=== PATIENT | male | born 1950 | race Caucasian/White ===

== ENCOUNTER → 2019-04-25 11:02 | Outpatient (BNVA) | payer MEDICARE, SELFPAY | PROVIDERS: Family Provider Family Medicine; PCP Family Medicine; Referring Provider Internal Medicine Rheumatology; Visit Provider Internal Medicine Rheumatology | DX: M05.79 Rheumatoid arthritis with rheumatoid factor of multiple sites without organ or systems involvement (principal); Z79.899 Other long term (current) drug therapy | CPT/HCPCS: 36415; 85651; 86140 ==

== ENCOUNTER → 2019-05-17 15:24 | Outpatient (BNVA) | payer MEDICARE, SELFPAY | PROVIDERS: Family Provider Family Medicine; PCP Family Medicine; Visit Provider Internal Medicine Rheumatology | DX: M05.9 Rheumatoid arthritis with rheumatoid factor, unspecified (principal); Z79.899 Other long term (current) drug therapy; E11.9 Type 2 diabetes mellitus without complications; G89.29 Other chronic pain; M54.5 Low back pain; M06.9 Rheumatoid arthritis, unspecified; Z71.89 Other specified counseling | CPT/HCPCS: 36415; 80076; 82565; 85025; 86140; 99214 ==

== ENCOUNTER → 2019-05-17 17:00 | Outpatient (BNVA) | payer MEDICARE, SELFPAY | PROVIDERS: Family Provider Family Medicine; PCP Family Medicine; Visit Provider Internal Medicine Rheumatology | DX: M06.9 Rheumatoid arthritis, unspecified (principal); Z79.899 Other long term (current) drug therapy; M05.9 Rheumatoid arthritis with rheumatoid factor, unspecified; E11.9 Type 2 diabetes mellitus without complications; Z71.89 Other specified counseling | CPT/HCPCS: 85025 ==

== ENCOUNTER 2019-05-19 12:51 | Outpatient (CLI) | payer MEDICARE, SELFPAY ==
--- NOTE | 2019-05-19 13:00 | XR_ITS ---
WS: [id number] Lumbar spine, 3 views, 05/19/2019 Clinical Data: arthritis Comparison: None. Findings: No compression fractures or subluxation is seen. No disc space narrowing is seen. The transverse proc esses and SI joints are normal. There is osteoarthritic spurring of the lower thoracic and the lumbar vertebral bodies L1-L3. There i s a large amount of fecal material in the colon. 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
== END 2019-05-19 12:52 | disposition home or self-care (01) ==
LOC: RADWPI 12:54
PROVIDERS: Family Provider Family Medicine; PCP Family Medicine; Visit Provider Internal Medicine Rheumatology
DX: M47.896 Other spondylosis, lumbar region (principal); M05.9 Rheumatoid arthritis with rheumatoid factor, unspecified
CPT/HCPCS: 72100

== ENCOUNTER → 2019-10-26 10:34 | Outpatient (BNVA) | payer MEDICARE, SELFPAY | PROVIDERS: Family Provider Family Medicine; PCP Family Medicine; Visit Provider Internal Medicine Rheumatology | DX: M05.79 Rheumatoid arthritis with rheumatoid factor of multiple sites without organ or systems involvement (principal); Z79.899 Other long term (current) drug therapy; E11.9 Type 2 diabetes mellitus without complications; M47.816 Spondylosis without myelopathy or radiculopathy, lumbar region; Z79.84 Long term (current) use of oral hypoglycemic drugs | CPT/HCPCS: 36415; 80076; 82565; 85025; 85651; 86140; 99213 ==

== ENCOUNTER 2019-12-20 13:33 | Outpatient (CLI) | payer MEDICARE, SELFPAY ==
--- NOTE | 2019-12-20 13:45 | MR_ITS ---
WS: [id number] MRI RIGHT SHOULDER HISTORY: pain COMPARISON: 12/01/2019 radiographs. TECHNIQUE: Multiplanar sequences of the shoulder joint are submitted. Quality of this examination is significantly limited by motion artifact. Increased fluid signal in the AC joint with narrowing of the AC joint. Nondisplaced avulsion fracture through the anterior acromion. There is fluid extending through the fracture line. Small amount of e jessica in the distal clavicular head. No os acromion. Complete tear with retraction of the supraspinatus tendon. Tendon is retracted to the medial humeral head. Cannot evaluate the quality of the distal tendon stump due to motion. Humeral head is high ridi ng abutting the undersurface of the acromion. Marked increased signal and thickening of the distal vigil bscapularis tendon. Additional near full-thickness to full-thickness tear of the distal subscapularis tendon. Biceps tendon is dislocated with increased fluid in the tendon sheath. Infraspinatus tendon is difficult to visualize and evaluate but cannot confirm tear. Mild atrophy of the supraspinatus mus danny. Humeral head is high riding with mild posterior subluxation with relationship to the glenoid. Loss of the normal cortex of the humeral head. Loss of the normal cartilage over the humeral head. Subchondr al cystic changes in the posterior lateral humeral head. Fluid extending around the some scapularis r ecess and along the tendon sheath of the subscapularis. No definite labral tears but this study is li mited especially involving the superior and inferior labrum. MR/MR shoulder RT wo con* [id number] IMPRESSION: 1. Quality of examination is significantly limited by motion. 2. Complete supraspinatus tendon tear with retraction to the medial humeral he ad. 3. Suspect complete subscapularis tendon tear with associated biceps tendon di slocation. 4. Moderate AC joint sprain with nondisplaced acromial fracture. 5. Severe degenerative changes at the humeral head with loss of cartilage and osteophytes. 6. Superior posterior mild subluxation of the humeral head with association to the glenoid.
== END 2019-12-20 13:34 | disposition home or self-care (01) ==
LOC: RADSHAW 13:36
PROVIDERS: PCP Nurse Practitioner Family; Visit Provider Orthopaedic Surgery
DX: S46.811A Strain of other muscles, fascia and tendons at shoulder and upper arm level, right arm, initial encounter (principal); S43.51XA Sprain of right acromioclavicular joint, initial encounter; S42.121A Displaced fracture of acromial process, right shoulder, initial encounter for closed fracture; X58.XXXA Exposure to other specified factors, initial encounter; M25.711 Osteophyte, right shoulder
CPT/HCPCS: 73221

== ENCOUNTER → 2020-01-02 11:01 | Outpatient (BNVA) | payer MEDICARE, SELFPAY | PROVIDERS: PCP Nurse Practitioner Family; Referring Provider Orthopaedic Surgery; Visit Provider Orthopaedic Surgery | DX: Z20.828 Contact with and (suspected) exposure to other viral communicable diseases (principal) | CPT/HCPCS: 87635 ==

== ENCOUNTER 2020-01-08 07:19 | Day surgery (SDC) | payer MEDICARE, SELFPAY ==
[2020-01-05 09:27] VITALS: BMI 28.8
[2020-01-08] VITALS (7 sets, daily range): BP systolic 91–136; BP diastolic 63–84; PULSE 71–89; RESP 10–18; TEMP 36.1–36.5; O2SAT 93–98
[2020-01-08 07:52] LABS: Glucose Point of Care 276 mg/dL (70-110)
[2020-01-08] MEDS: sodium chloride 0.9% 1,000 ML 30 ML IV (07:58)
--- NOTE | 2020-01-08 08:00 | ANES.PREANE2 ---
Pre-Anesthetic Assessment Pre-Anesthetic Assessment: Height/Weight: Height 1.75 m Weight 88.451 kg Temp Pulse Resp BP Pulse Ox 97.2 F L 71 18 136/84 97 01/08/20 07:38 01/08/20 07:38 01/08/20 07:38 01/08/20 07:38 01/08/20 07:38 Preop Diagnosis: Right rotator cuff tear, dislocation biceps tendon Proposed Procedure: Operation Date: 01/08/20 09:25 Proposed Procedures p right Shoulder Arthroscopy and subacromial decompression 80112 32253 12360 40465 M75.101 S46.219A M70.21(Right) - MD bobbi Osman Rotator Cuff Repair(Right) - MD bobbi Osman subacromial Decompression(Not Applicable) - MD bobbi Osman Poss Bicep Tenodesis(Not Applicable) - MD bobbi Osman Right Elbow olecranon bursa Aspiration Upper Extremity(Right) - Filiberto Snyder MD Familial anesthetic complications: None Was Beta Radha taken within 24 hours: N/A Last intake: Intake Last Liquid Date 01/07/20 Last Liquid Time 22:00 Last Solid Date 01/07/20 Last Solid Time 22:00 Social: Social History: Tobacco Comment: chews Exam: Pre-Anes Outpt Exam: alert, oriented x 3, clear to auscultation bilaterally and regular rate & rhythm Airway: Cervical ROM: WNL MP: 2 Dentition: False Metabolic: Metabolic: DM and Hyperlipidemia Musc/skel: Musc/skel: RA Anesthetic Plan: ASA status: 2 Anesthesia: General and Regional (specify below) Risk of > 500 ml blood loss (7ml/kg in children): No Meds/Allergies Current Medications: Current Medications Generic Name Dose Route Start Last Admin Trade Name Freq PRN Reason Stop Dose Admin Sodium Chloride 1,000 mls @ 30 ml s/hr 01/08/20 07:30 01/08/20 07:58 Sodium Chloride 0.9% IV 01/09/20 07:29 30 mls/hr .Q24H BECKY Administration PFSH Anesthesia PFSH: Medical History (Updated 01/01/20 @ 09:28 by Filiberto Snyder MD) Degenerative joint disease (DJD) of lumbar spine High risk medication use Immunization counseling Rheumatoid arthritis with rheumatoid factor Seropositive rheumatoid arthritis of multiple sites Type 2 diabetes mellitus Surgical History History of appendectomy History of hernia surgery Family History Other Arthritis Diabetes Hyperlipidemia Hypertension Social History Smoking and tobacco status: former smoker Alcohol intake: never History of recent travel: No Data Anesthesia Other Labs: Laboratory Results - last 48 hr 01/08/20 07:50 POC Glucose 276 Cardiac Studies: No Data to Display
--- NOTE | 2020-01-08 08:16 | ANES.PROC ---
Anesthesia Procedures Procedure/Date: 01/08/20 Nerve Block ^: Nerve Block 1: Main Anesthesia: general anesthesia Time Out Performed: Yes Consent: requested by attending/covering physician, from patient, from other, risks and benefits reviewed and patient agrees to proceed Nerve block location: interscalene (R) Anesthesia monitors applied: pulse oximetry, EKG, BP cuff and oxygen Nerve block position: semi sitting Anesthetic Used: ropivicaine 0.5% and with decadron (4 mg) Amount of anesthesia used (mL): 20 Ultrasound used to: recognize landmarks, visualize and ID brachial plexus and visualize and ID interscalene groove Nerve Stimulator Used?: No Interscalene/Femoral BLK: 2 stimuplex 22 g needle used for position and inplane approach, visualize local anesthetic spread and no vascular puncture identified Injection: neg aspiration of heme Patient Tolerated Procedure: well Complications: none
[2020-01-08] MEDS: midazolam 1 mg/mL INJ 2 mL 2 MG IVP (08:27)
--- NOTE | 2020-01-08 09:17 | W.PM.OPSUD ---
Surgery/Procedure H&P Update DATE OF PROCEDURE: January 08, 2020 DATE H&P PERFORMED: 01/01/20 PREOP DIAGNOSIS: Right rotator cuff tear, dislocation biceps tendon PLANNED PROCEDURE: Operation Date: 01/08/20 09:25 Proposed Procedures p right Shoulder Arthroscopy and subacromial decompression 22426 34520 50501 30319 M75.101 S46.219A M70.21(Right) - MD bobbi Osman Rotator Cuff Repair(Right) - MD bobbi Osman subacromial Decompression(Not Applicable) - MD bobbi Osman Poss Bicep Tenodesis(Not Applicable) - MD bobbi Osman Right Elbow olecranon bursa Aspiration Upper Extremity(Right) - Filiberto Snyder MD
--- NOTE | 2020-01-08 12:51 | P.OP_ITS ---
Operative Report Date of procedure: January 08, 2020 Pre-op Diagnosis: Right rotator cuff tear, dislocation biceps tendon Post-op diagnosis: other (Right rotator cuff tear involving subscapularis, supraspinatus, and infraspinatus, partial tear right biceps) Post-op Findings: As above Procedure Done: Arthroscopic repair right rotator cuff, arthroscopic right biceps tenodesis, arthroscopic right subacromial decompression Implants: [employer] Q fix x4, [employer] Helicoil 4.0x2, [employer] Helicoil knotless 5.0 mm x 2 Pathology: none sent Anesthesia: General and Nerve Block (Interscalene block) Estimated blood loss (mL): 25 Findings: The patient had a large tear of his rotator cuff consisting of a complete tear of the supraspinatus and a delaminating tear of his short external rotators. His anterior rotator cuff cable was intact however he had tearing of his superior 30% of the subscapularis without significant retraction. He had high-grade tearing of his biceps tendon as it entered the bicipital groove. He had a prominent anterior acromial spur Condition: stable Disposition: PACU Procedure: None he was given an interscalene block in the holding and taken to the OR where he was given 2 g of Ancef. He was positioned in the lateral position with his right arm in 15 pounds of traction. A timeout was performed. The shoulder was initially entered through a posterior portal. The diagnostic part arthroscopy was performed and above findings noted. The scope was then moved to the subacromial space. An additional anterior and lateral portal were placed. Initial attention was paid to the leading edge of the acromion. To make room for the repair a 5 5 acromionizer was introduced and approximately 5 mm of anterior and inferior acromion were removed. Hemostasis was provided with the [employer] Werewolf probe Attention was placed to the biceps. Biceps tendon was displaced from the bicipital groove through the anterior portal and working through the lateral portal the groove was debrided down to healthy trabecular bone. Through a stab wound over the biceps a Q fix anchor was placed at the distal extent of the bicipital groove. A loop of a 1 suture was then retrieved through the anterior portal and the free end of that looped retrieved through the loop creating a cinch stitch securing the biceps to the distal bicipital groove. A second Q fix anchor was placed in identical fashion approximately 1 cm proximal. The biceps tendon was then released from the superior labrum and excised down to the level of the arthrodesis. With the biceps tendon removed the leading edge of the subscapularis could be identified revealing the tear of the proximal third. Working intra-articularly the footprint was debrided. Visualized in the footprint a Q fix anchor was placed centrally in the footprint. The scope was then moved to the lateral portal and working through the anterior portal the superior subscapularis was identified. The [employer] Werewolf probe was used to remove bursal tissue anteriorly. The degenerative tissue in the interval between the subscapularis and the footprint was debrided. Working through the anterior portal each limb of the Q fix anchor were passed through the rotator cuff with a first pass suture passer. Through the anterior portal these are secured bringing the subscapularis down to the debrided bone. Attention was then focused on the supraspinatus and infraspinatus tear. Initially a Accupass shuttle was used to pass a Prolene shuttle suture across the articular aspect of the posterior tear. This was exchanged for an Ultratape suture in this Ultratape was passed with the first pass through the posterior bursal tear. This was secured turning the external rotators into a simple repair configuration. Through a lateral stab wound a [employer] Helicoil 4.0 mm anchor was placed in the posterior medial greater tuberosity. The [employer] FirstPass suture passer was used to shuttle the first limb of Ultratape through the posterior medial cuff approximately 6 mm from the tendon edge and the second limb of Ultratape approximately 5 mm anterior to that. A second [employer] Helicoil 4.0 mm anchor was placed in the anterior medial footprint and 2 Ultratape sutures passed in identical fashion. These were secured drawing the medial cuff to bone. Next one limb of suture from each anchor was brought out that lateral cannula. A [employer] Helicoil 5.0 knotless anchor was placed at the edge of the anterior lateral footprint and those 2 sutures secured. A second knotless anchor was placed in the posterior lateral footprint. The lateral aspect of the rotator cuff was seen to be drawn to the bone. The repair was probed and found to be stable. The shoulder was irrigated with saline. Portals were closed with 3-0 Prolene. Sterile dressings were applied. The patient was placed in abduction pillow, extubated, and taken to recovery room in stable condition.
--- NOTE | 2020-01-08 13:00 | SUR.PHASEI ---
1258 PATIENT TO PACU FROM OR. RR EVEN AND UNLABORED. DRESSING TO RIGHT SHOULDER, CDI WITH SLING IN PLACE. CAP REFILL INTACT.
--- NOTE | 2020-01-08 13:22 | SUR.PHASEI ---
1317 TO OPS. PATIENT DENIES PAIN. DRESSING IN PLACE TO RIGHT SHOULDER, CDI WITH SLING.
== END 2020-01-08 14:20 | disposition home or self-care (01) ==
PROVIDERS: PCP Nurse Practitioner Family; Visit Provider Orthopaedic Surgery
PROC: (CPT 29805; principal; 2020-01-08 09:25)
PROC: (CPT 29826; 2020-01-08 09:25)
PROC: (CPT 29826; 2020-01-08 09:25)
PROC: (CPT 23430; 2020-01-08 09:25)
PROC: (CPT 29826; 2020-01-08 09:25)
DX: M75.101 Unspecified rotator cuff tear or rupture of right shoulder, not specified as traumatic (principal); S46.219A Strain of muscle, fascia and tendon of other parts of biceps, unspecified arm, initial encounter; X58.XXXA Exposure to other specified factors, initial encounter; E11.9 Type 2 diabetes mellitus without complications; E78.5 Hyperlipidemia, unspecified; M06.9 Rheumatoid arthritis, unspecified; Z87.891 Personal history of nicotine dependence
CPT/HCPCS: 29826; 29827; 29828; 12345; 36416; 64415; 76942; 82962; 96374; C1713; J0690; J1100; J2250; J2405; J2704; J2795; J3010; J3490; J7030

== ENCOUNTER 2020-01-26 11:45 | Outpatient (RCR) | payer MEDICARE, SELFPAY | END 2020-02-19 23:59 | disposition home or self-care (01) | LOC: SPT 11:45 | PROVIDERS: PCP Nurse Practitioner Family; Referring Provider Orthopaedic Surgery; Visit Provider Orthopaedic Surgery | DX: Z47.89 Encounter for other orthopedic aftercare (principal) | CPT/HCPCS: 97110; 97161 ==

== ENCOUNTER 2020-02-20 06:00 | Outpatient (RCR) | payer MEDICARE, SELFPAY | END 2020-03-21 23:59 | disposition home or self-care (01) | LOC: SPT 06:00 | PROVIDERS: PCP Nurse Practitioner Family; Referring Provider Orthopaedic Surgery; Visit Provider Orthopaedic Surgery | DX: Z47.89 Encounter for other orthopedic aftercare (principal) | CPT/HCPCS: 97110 ==

== ENCOUNTER 2020-03-22 06:00 | Outpatient (RCR) | payer MEDICARE, SELFPAY | END 2020-04-21 23:59 | disposition home or self-care (01) | LOC: SPT 06:00 | PROVIDERS: PCP Nurse Practitioner Family; Referring Provider Orthopaedic Surgery; Visit Provider Orthopaedic Surgery | DX: Z47.89 Encounter for other orthopedic aftercare (principal) | CPT/HCPCS: 97110 ==

== ENCOUNTER → 2020-04-01 10:55 | Outpatient (BNVA) | payer MEDICARE, SELFPAY | PROVIDERS: PCP Nurse Practitioner Family; Visit Provider Internal Medicine Rheumatology | DX: Z79.899 Other long term (current) drug therapy (principal); M05.79 Rheumatoid arthritis with rheumatoid factor of multiple sites without organ or systems involvement | CPT/HCPCS: 36415; 80076; 82565; 85025; 85651; 86140 ==

== ENCOUNTER 2020-04-22 06:00 | Outpatient (RCR) | payer MEDICARE, SELFPAY | END 2020-05-19 23:59 | disposition home or self-care (01) | LOC: SPT 06:00 | PROVIDERS: PCP Nurse Practitioner Family; Referring Provider Orthopaedic Surgery; Visit Provider Orthopaedic Surgery | DX: Z47.89 Encounter for other orthopedic aftercare (principal) | CPT/HCPCS: 97110 ==

== ENCOUNTER → 2020-04-29 09:41 | Outpatient (BNVA) | payer MEDICARE, SELFPAY | PROVIDERS: PCP Nurse Practitioner Family; Visit Provider Internal Medicine Rheumatology | DX: M05.79 Rheumatoid arthritis with rheumatoid factor of multiple sites without organ or systems involvement (principal); Z79.899 Other long term (current) drug therapy; E11.9 Type 2 diabetes mellitus without complications; Z79.84 Long term (current) use of oral hypoglycemic drugs; M47.816 Spondylosis without myelopathy or radiculopathy, lumbar region; Z87.891 Personal history of nicotine dependence | CPT/HCPCS: 99214 ==

== ENCOUNTER 2020-05-03 21:36 | Observation (INO) | payer MEDICARE, SELFPAY ==
[2020-05-03 21:46] VITALS: BP 144/87; PULSE 91; RESP 18; TEMP 36.4; O2SAT 97; BMI 29.5
--- NOTE | 2020-05-03 21:56 | ED_ITS ---
HPI - General Adult General: Chief complaint: General Medical Stated complaint: FEELS LIKE SOMETHING STUCK IN THROAT Time Seen by Provider: 05/03/20 21:52 Source: patient Mode of arrival: ambulatory Limitations: no limitations History of Present Illness: HPI narrative: 69-year-old male states that he was eating a night and got hiccups started throwing up. He states that he then felt like he had a piece of meat stuck in his esophagus. He states that he was eating chicken fried steak. Patient states that he since feels much improved. He denies any worsening or improving factors. Associated symptoms: Reports nausea and vomiting; Deny chest pain, dyspnea, headache(s) or rash Review of Systems Const: Denies: fever(s), chills, body aches or change in appetite Eyes: Denies: blurry vision or eye discomfort ENMT: Denies: throat pain or dental pain Card: Denies: chest pain Resp: Denies: dyspnea GI: Reports: abdominal pain, nausea and vomiting; Denies: diarrhea : Denies: dysuria Musc: Denies: neck pain or back pain Skin/Breast: Denies: rash Neuro: Denies: headache(s) Psych: Denies: depression Juan Francisco/Lymph: Denies: easy bruising All/Imm: Denies: urticaria PFSH ED PFSH: Medical History (Updated 05/03/20 @ 23:08 by Lissa Sinha MD) Degenerative joint disease (DJD) of lumbar spine Diverticular disease High risk medication use Immunization counseling Rheumatoid arthritis with rheumatoid factor Seropositive rheumatoid arthritis of multiple sites Type 2 diabetes mellitus Surgical History (Updated 04/29/20 @ 10:50 by Beto Ramírez MD) History of appendectomy History of hernia surgery History of shoulder surgery Fell and busted right shoulder then surgery 12/2019 Family History Other Arthritis Diabetes Hyperlipidemia Hypertension Social History Smoking and tobacco status: former smoker Alcohol intake: never History of recent travel: No Physical Exam Const: COMMON NORMALS: no acute distress, patient oriented x3 and healthy appearing HENMT: COMMON NORMALS: normocephalic and atraumatic HEAD & SCALP: normocephalic and atraumatic Eye: COMMON NORMALS: Equal, round and reactive pupils present and EOMs intact bilaterally PUPIL: Yes Equal, round and reactive pupils present Neck/C-Spine: COMMON NORMALS: full ROM and supple Chest: COMMONS NORMALS: normal inspection of the chest and normal palpation of entire chest wall Resp: COMMON NORMALS: normal respiratory effort, No retractions, No use of accessory muscles and clear to auscultation bilaterally AUSCULTATION: clear to auscultation bilaterally Cardio: COMMON NORMALS: regular rate, regular rhythm and No murmurs present (Cardio) RATE: regular rate RHYTHM: regular rhythm GI: COMMON NORMALS: Normal to inspection, nondistended, normoactive bowel sounds present, Soft to palpation, non-tender and no masses PALPATION: Yes Soft to palpation Extremity: COMMON NORMALS: normal to inspection and full ROM Neuro: COMMON NORMALS: patient oriented x3, moves all extremities and no focal motor deficits Psych: COMMON NORMALS: mental status grossly normal, Normal thought process present and cooperative THOUGHT PROCESS: Normal thought process present Skin: COMMON NORMALS: no rashes or lesions noted and no wounds GENERAL SKIN EXAM: no rashes or lesions noted Course Vital Signs: Vital signs: Vital Signs Temperature 97.5 F L 05/03/20 21:46 Pulse Rate 91 05/03/20 21:46 Respiratory Rate 18 05/03/20 21:46 Blood Pressure 144/87 05/03/20 21:46 Pulse Oximetry 97 05/03/20 21:46 MDM - General Adult MDM Narrative: Medical decision making narrative: Da presents with likely food impaction of the esophagus. He is not been able to drink any fluids here. He is able to handle his own secretions. I spoke to Dr. White and will admit and if he is not improved he will have an EGD in the morning. Discharge Plan Discharge Patient Disposition: Admitted As Inpatient Admit Provider: Familia White Clinical Impression: Food impaction of esophagus Qualifiers: Encounter type: initial encounter Qualified Code(s): T18.128A - Food in esophagus causing other injury, initial encounter Condition: Stable Coding Level of Care Code ED [employer] for [facility] Fwd Exam Comprehensive
[2020-05-03] MEDS: lidocaine 2% viscous 15 ML, aluminum-mag hydrox-simethicon 30 ML, sucralfate oral liq 1 GM PO (22:04)
--- NOTE | 2020-05-03 22:10 | PC.NURSE ---
Pt given GI cocktail, within 1-2 minutes patient had an episode of emesis and much of the GI cocktail appeared to have been expelled.
--- NOTE | 2020-05-03 23:05 | PC.NURSE ---
Dr. Sinha tells this nurse to hold off on giving the glucagen injection verified that he does not want the glucagen given at this time and Dr. Sinha confirmed.
--- NOTE | 2020-05-03 23:25 | XRR_ITS ---
PROCEDURE INFORMATION: Exam: XR Chest, 1 View Exam date and time: 05/03/2020 11:31 PM Age: 69 years old Clinical indication: Other: Foreign body; Patient HX: Possible esophageal obstruction following dinner this evening. Unable to keep anything down. Vomiting. ; Additional info: Fb TECHNIQUE: Imaging protocol: XR of the chest Views: 1 view. COMPARISON: CT chest w con* [id number] 07/31/2018 10:35 PM FINDINGS: Lungs: Lungs are clear. Pleural spaces: There is no pleural effusion or pneumothorax. Heart/Mediastinum: Cardiomediastinal contours are unremarkable. Bones/joints: Bones are unremarkable. Gastrointestinal tract: Trace gas is seen in the upper esophagus. No radiopaque foreign body is seen. XR/XR chest 1V portable [id number] IMPRESSION: No acute findings.
[2020-05-04 00:21] VITALS: BP 136/76; PULSE 85; RESP 16; O2SAT 96
[2020-05-04 00:43] LABS: Basophils # 0.1 10^3/uL (0.0-0.1); Basophils % 0.6 %; Eosinophils # 0.1 10^3/uL (0.0-0.8); Eosinophils % 0.8 %; Hematocrit 44.1 % (42.0-52.0); Hemoglobin 14.8 g/dL (11.7-16.6); Lymphocytes # 1.1 10^3/uL (0.8-4.8); Lymphocytes % 13.9 %; Mean Corpuscular HGB Conc 33.6 g/dL (30.0-36.0); Mean Corpuscular Hemoglobin 29.3 pg (28.0-34.0); Mean Corpuscular Volume 87.3 fL (80-94); Monocytes # 0.4 10^3/uL (0.2-0.9); Monocytes % 5.5 %; Neutrophils # 6.25 10^3/uL (1.8-7.7); Neutrophils % 78.8 %; Nucleated Red Blood Cells % 0 %; Platelet Count 175 10^3/cmm (130-400); Red Blood Count 5.05 10^6/uL (4.1-5.3); Red Cell Distribution Width 13.3 % (12.1-15.1); White Blood Count 7.9 10^3/uL (4.0-10.0)
[2020-05-04 01:00] VITALS: BP 135/80; PULSE 85; RESP 16; O2SAT 97
[2020-05-04 01:13] VITALS: BP 147/88; PULSE 79; RESP 18; TEMP 36.5; O2SAT 96
[2020-05-04 01:16] LABS: Alanine Aminotransferase 29 U/L (0-41); Albumin Level 4.7 g/dL (3.5-5.2); Alkaline Phosphatase 63 IU/L (40-130); Anion Gap 15.6 (5-19); Aspartate Amino Transferase 20 U/L (0-40); Blood Urea Nitrogen 17 mg/dL (8-23); Calcium 9.1 mg/dL (8.5-10.5); Carbon Dioxide 26 mmol/L (22-29); Chloride 104 mmol/L (98-107); Globulin 2.7 g/dL (1.3-4.6); Glucose 141 mg/dL (65-115); Osmolality Calculated 296 mOsm/kg (285-295); Potassium 4.6 mmol/L (3.5-5.1); Sodium 141 mmol/L (136-145); Total Bilirubin 0.3 mg/dL (0.15-1.2); Total Protein 7.4 g/dL (6.6-8.7)
[2020-05-04] MEDS: sodium chloride 0.9% 1,000 ML 100 ML IV (01:31)
[2020-05-04 04:20] VITALS: BP 106/67; PULSE 79; RESP 18; TEMP 36.6; O2SAT 97
[2020-05-04 07:56] VITALS: BP 117/74; PULSE 69; RESP 18; TEMP 36.7; O2SAT 97
--- NOTE | 2020-05-04 11:35 | PM.SDS ---
Short Stay Summary Providers Date of Admit/Discharge: 05/04/20 Attending Provider: Familia White MD Primary Care Provider: TENISHA Wells Chief Complaint: FEELS LIKE SOMETHING STUCK IN THROAT HPI History of Present Illness Da Coleman is a 69 year old male who presented to the ER last night with sensation of piece of meat getting stuck in his esophagus. Patient had multiple hiccups and he threw up but he was able to swallow some saliva but could not eat. Patient states that he ate chicken fried steak. He denies any chest pain or abdominal pain. He states that he has had intermittent episodes of dysphagia followed by vomiting every week or so. Denies any history of peptic ulcer disease, GERD or use of PPI. He states that he had EGD and colonoscopy couple of years ago. Since admission he feels like his past the obstructing food bolus Review of Systems General: Reports: 10 or more systems reviewed and unremarkable except in HPI and below Home Meds/Allergies Home Medications and Allergies Home Medications Medication Instructions Recorded Confirmed Type aspirin 81 mg tablet,delayed 81 mg PO DAILY 05/16/19 05/04/20 History release atorvastatin 10 mg tablet 10 mg PO DAILY 05/16/19 05/04/20 History metformin 500 mg tablet 500 mg PO BID 10/26/19 05/04/20 History glimepiride See Rx Instructions .ROUTE .COMPLEX 05/04/20 05/04/20 History Allergies Allergy/AdvReac Type Severity Reaction Status Date / Time No Known Allergies Allergy Verified 05/03/20 21:51 PFSH Acute PFSH: Medical History Degenerative joint disease (DJD) of lumbar spine Diverticular disease Food impaction of esophagus Seropositive rheumatoid arthritis of multiple sites Type 2 diabetes mellitus Surgical History H/O esophagogastroduodenoscopy History of appendectomy History of hernia surgery History of shoulder surgery Fell and busted right shoulder then surgery 12/2019 Status post colonoscopy Family History Other Arthritis Diabetes Hyperlipidemia Hypertension Social History Smoking and tobacco status: former smoker Alcohol intake: never History of recent travel: No Vitals/I&O/Wt Last Vital Signs Temp 98.0 F 05/04/20 07:56 Pulse 69 05/04/20 07:56 Resp 18 05/04/20 07:56 BP 117/74 05/04/20 07:56 Pulse Ox 97 05/04/20 07:56 05/03/20 05/04/20 05/04/20 22:59 06:59 14:59 Output Total 400 / 400 Balance -400 / -400 Weight last 48 hrs Weight 200 lb Physical Exam Narrative: EXAM NARRATIVE: HEENT: Normocephalic Eye: Sclera /conjunctiva normal Abdomen: Soft to palpation Neurological: Oriented to place person and time Skin: Intact, no lesions appreciated on gross exam Hospital Course Admission Diagnoses Esophageal obstruction due to food impaction Hospital Course The patient was admitted to the floor for a planned EGD but subsequently had spontaneous resolution of his esophageal obstruction. He was able to drink water and tolerating regular diet Discharge Summary The patient was able to tolerate regular diet and was discharged home on Protonix 40 mg daily. Follow-up in 4 weeks, if there is no significant improvement in his dysphagia plan for EGD with possible dilation under MAC SSS Data Data Completed and Pending: Completed Studies During Hospitalization Category Date Time Status XR chest 1V ela ble [id number] Routine Exams 05/03/20 23:25 Completed Diagnoses at Discharge Discharge Diagnosis (1) Food impaction of esophagus: Status: Resolved Qualifiers: Encounter type: initial encounter Qualified Code(s): T18.128A - Food in esophagus causing other injury, initial encounter Discharge Plan Discharge Patient Disposition: Home Condition: Stable Prescriptions: New Protonix 40 mg tablet,delayed release (DR/EC) 40 mg PO DAILY 42 Days RF: 3 Continued atorvastatin 10 mg tablet 10 mg PO DAILY RF: 0 aspirin 81 mg tablet,delayed release (DR/EC) 81 mg PO DAILY RF: 0 metformin 500 mg tablet 500 mg PO BID RF: 0 hydroxychloroquine [Plaquenil] 200 mg tablet 200 mg PO DAILY Qty: 90 RF: 1 prednisone 10 mg tablet 10 mg PO DAILY Qty: 30 RF: 0 leflunomide 20 mg tablet 20 mg PO DAILY Qty: 90 RF: 0 diclofenac sodium 1 % gel 4 g topical QID Qty: 100 RF: 1 glimepiride 1 mg tablet See Rx Instructions .ROUTE .COMPLEX RF: 0 Discharge Orders: Discharge Order (Routine); Ordered 05/04/20 Ordered By: Familia White Referrals: Familia White MD [Physician] - 05/31/20 Cheli Vasquez FNP [Primary Care Provider] - (Please call [facility] on Wednesday and schedule an appointment to see Cheli Vasquez. ) Discharge Diet: Advance as tolerated Discharge Activity: Resume usual activity Patient Instructions: Pantoprazole (By mouth), Gastroesophageal Reflux Disease (GEN), Food Impaction (GEN) Attestations Medical Necessity Statement*: Esophageal obstruction due to food impaction, resolved Time Spent in Patient Care*: less than 30 min Quality Metrics Clinical Quality Measures: During this hospital stay, did patient experience: None Coding Level of Care Code Acute [employer] for [facility] Fwd Diagnoses Food impaction of esophagus T18.128A Encounter type: initial encounter
== END 2020-05-04 15:21 | disposition home or self-care (01) ==
LOC: ER 23:08 → MEDSURG 23:37
PROVIDERS: Admitting Provider Surgery; Emergency Provider Emergency Medicine; PCP Nurse Practitioner Family; Visit Provider Surgery
DX: T18.128A Food in esophagus causing other injury, initial encounter (principal); E11.9 Type 2 diabetes mellitus without complications; Z87.891 Personal history of nicotine dependence
CPT/HCPCS: 36415; 71045; 80053; 85025; 96360; 96361; 96372; 99285; G0378; J7030

== ENCOUNTER → 2020-05-28 09:11 | Outpatient (BNVA) | payer MEDICARE, SELFPAY | PROVIDERS: PCP Nurse Practitioner Family; Visit Provider Internal Medicine Rheumatology | DX: M05.79 Rheumatoid arthritis with rheumatoid factor of multiple sites without organ or systems involvement (principal); Z79.899 Other long term (current) drug therapy | CPT/HCPCS: 36415; 80076; 82565; 85025; 86140 ==

== ENCOUNTER → 2020-08-26 09:48 | Outpatient (BNVA) | payer MEDICARE, SELFPAY | PROVIDERS: PCP Nurse Practitioner Family; Visit Provider Internal Medicine Rheumatology | DX: M19.90 Unspecified osteoarthritis, unspecified site (principal); Z79.899 Other long term (current) drug therapy; M05.79 Rheumatoid arthritis with rheumatoid factor of multiple sites without organ or systems involvement | CPT/HCPCS: 36415; 80076; 82565; 85025; 86140 ==

== ENCOUNTER → 2020-09-02 12:41 | Outpatient (BNVA) | payer MEDICARE, SELFPAY | PROVIDERS: PCP Nurse Practitioner Family; Visit Provider Internal Medicine Rheumatology | DX: M05.79 Rheumatoid arthritis with rheumatoid factor of multiple sites without organ or systems involvement (principal); Z79.899 Other long term (current) drug therapy; M47.896 Other spondylosis, lumbar region; Z87.891 Personal history of nicotine dependence | CPT/HCPCS: 99214 ==

== ENCOUNTER → 2020-12-25 08:32 | Outpatient (BNVA) | payer MEDICARE, SELFPAY | PROVIDERS: PCP Nurse Practitioner Family; Visit Provider Internal Medicine Rheumatology | DX: M05.79 Rheumatoid arthritis with rheumatoid factor of multiple sites without organ or systems involvement (principal); Z79.899 Other long term (current) drug therapy | CPT/HCPCS: 36415; 80076; 82565; 85025; 86140 ==

== ENCOUNTER → 2021-01-01 12:19 | Outpatient (BNVA) | payer MEDICARE, SELFPAY | PROVIDERS: PCP Nurse Practitioner Family; Visit Provider Internal Medicine Rheumatology | DX: M05.79 Rheumatoid arthritis with rheumatoid factor of multiple sites without organ or systems involvement (principal); Z79.899 Other long term (current) drug therapy; M47.816 Spondylosis without myelopathy or radiculopathy, lumbar region; D69.6 Thrombocytopenia, unspecified; Z71.89 Other specified counseling; Z87.891 Personal history of nicotine dependence | CPT/HCPCS: 36415; 85025; 99214 ==

== ENCOUNTER → 2021-05-05 13:37 | Outpatient (BNVA) | payer MEDICARE, SELFPAY | PROVIDERS: PCP Nurse Practitioner Family; Visit Provider Internal Medicine Rheumatology | DX: M05.79 Rheumatoid arthritis with rheumatoid factor of multiple sites without organ or systems involvement (principal); M47.816 Spondylosis without myelopathy or radiculopathy, lumbar region; Z79.899 Other long term (current) drug therapy; Z71.89 Other specified counseling | CPT/HCPCS: 80076; 82565; 85025; 86140; 99214 ==

== ENCOUNTER 2021-05-05 14:45 | Outpatient (CLI) | payer MEDICARE, SELFPAY ==
[2021-05-05 15:19] LABS: Basophils # 0.1 10^3/uL (0.0-0.1); Basophils % 1.1 %; Eosinophils # 0.1 10^3/uL (0.0-0.8); Eosinophils % 1.5 %; Hematocrit 46.6 % (42.0-52.0); Hemoglobin 15.5 g/dL (11.7-16.6); Lymphocytes # 1.1 10^3/uL (0.8-4.8); Lymphocytes % 20.4 %; Mean Corpuscular HGB Conc 33.3 g/dL (30.0-36.0); Mean Corpuscular Hemoglobin 29.2 pg (28.0-34.0); Mean Corpuscular Volume 87.9 fl (80-94); Mean Platelet Volume 12.7 fL (7.4-10.4); Monocytes # 0.5 10^3/uL (0.2-0.9); Monocytes % 8.3 %; Neutrophils % 68.1 %; Nucleated Red Blood Cells % 0 %; Platelet Count 143 10^3/cmm (130-400); Red Cell Distribution Width 12.6 % (12.1-15.1); White Blood Count 5.4 10^3/uL (4.0-10.0)
[2021-05-05 16:06] LABS: Alanine Aminotransferase 40 U/L (0-41); Albumin Level 4.9 g/dL (3.5-5.2); Alkaline Phosphatase 62 IU/L (40-130); Aspartate Amino Transferase 22 U/L (0-40); Globulin 2.7 g/dL (1.3-4.6); Total Bilirubin 0.4 mg/dL (0.15-1.2); Total Protein 7.6 g/dL (6.6-8.7)
== END 2021-05-05 14:46 | disposition home or self-care (01) ==
LOC: LAB 14:49
PROVIDERS: PCP Nurse Practitioner Family; Visit Provider Internal Medicine Rheumatology
DX: M05.79 Rheumatoid arthritis with rheumatoid factor of multiple sites without organ or systems involvement (principal); Z79.899 Other long term (current) drug therapy
CPT/HCPCS: 80076; 82565; 85025; 86140

== ENCOUNTER → 2021-10-29 10:28 | Outpatient (BNVA) | payer MEDICARE, SELFPAY | PROVIDERS: PCP Nurse Practitioner Family; Visit Provider Internal Medicine Rheumatology | DX: M05.79 Rheumatoid arthritis with rheumatoid factor of multiple sites without organ or systems involvement (principal); M47.816 Spondylosis without myelopathy or radiculopathy, lumbar region; Z79.899 Other long term (current) drug therapy; Z71.89 Other specified counseling | CPT/HCPCS: 99214 ==

== ENCOUNTER → 2022-01-09 08:25 | Outpatient (BNVA) | payer MEDICARE, SELFPAY | PROVIDERS: PCP Nurse Practitioner Family; Visit Provider Clinical Nurse Specialist Adult Health | DX: E78.5 Hyperlipidemia, unspecified (principal); M05.79 Rheumatoid arthritis with rheumatoid factor of multiple sites without organ or systems involvement; Z79.899 Other long term (current) drug therapy; E11.9 Type 2 diabetes mellitus without complications; Z23 Encounter for immunization; R03.0 Elevated blood-pressure reading, without diagnosis of hypertension; M94.0 Chondrocostal junction syndrome [Tietze] | CPT/HCPCS: 80053; 80061; 85025; 86140 ==

== ENCOUNTER 2022-04-28 13:25 | Outpatient (CLI) | payer MEDICARE, SELFPAY | END 2022-04-28 13:26 | disposition home or self-care (01) | LOC: RT 13:27 | PROVIDERS: PCP Electrodiagnostic Medicine; Visit Provider Electrodiagnostic Medicine | DX: J44.9 Chronic obstructive pulmonary disease, unspecified (principal); F17.210 Nicotine dependence, cigarettes, uncomplicated; M05.79 Rheumatoid arthritis with rheumatoid factor of multiple sites without organ or systems involvement; Z79.899 Other long term (current) drug therapy; Z71.89 Other specified counseling; M47.816 Spondylosis without myelopathy or radiculopathy, lumbar region | CPT/HCPCS: 94010; 94726; 94729; 99214 ==

== ENCOUNTER 2022-07-24 11:04 | Outpatient (CLI) | payer MEDICARE, SELFPAY ==
[2022-07-24 11:39] LABS: Basophils % 1.5 %; Eosinophils # 0.1 10^3/uL (0.0-0.8); Eosinophils % 2.9 %; Hematocrit 43.1 % (42.0-52.0); Hemoglobin 14.1 g/dL (11.7-16.6); Lymphocytes # 0.9 10^3/uL (0.8-4.8); Mean Corpuscular HGB Conc 32.7 g/dL (30.0-36.0); Mean Corpuscular Volume 85.7 fl (80-94); Mean Platelet Volume 11.8 fL (7.4-10.4); Monocytes # 0.3 10^3/uL (0.2-0.9); Monocytes % 12.5 %; Neutrophils # 1.36 10^3/uL (1.8-7.7); Neutrophils % 49.7 %; Nucleated Red Blood Cells % 0 %; Platelet Count 142 10^3/cmm (130-400); Red Blood Count 5.03 10^6/uL (4.1-5.3); Red Cell Distribution Width 13.4 % (12.1-15.1); White Blood Count 2.7 10^3/uL (4.0-10.0)
[2022-07-24 11:56] LABS: Alanine Aminotransferase 32 U/L (0-41); Albumin Level 4.3 g/dL (3.5-5.2); Alkaline Phosphatase 51 U/L (40-130); Aspartate Amino Transferase 27 U/L (0-40); Globulin 2.5 g/dL (1.3-4.6); Total Bilirubin 0.5 mg/dL (0.15-1.2); Total Protein 6.8 g/dL (6.6-8.7)
== END 2022-07-24 11:05 | disposition home or self-care (01) ==
PROVIDERS: Internal Medicine Rheumatology; PCP Electrodiagnostic Medicine; Visit Provider Internal Medicine
DX: M05.79 Rheumatoid arthritis with rheumatoid factor of multiple sites without organ or systems involvement (principal); Z79.899 Other long term (current) drug therapy
CPT/HCPCS: 36415; 80076; 82565; 85025; 86140

== ENCOUNTER 2022-09-15 07:12 | Outpatient (CLI) | payer MEDICARE, SELFPAY ==
[2022-09-15 07:29] LABS: Basophils # 0.1 10^3/uL (0.0-0.1); Basophils % 1.2 %; Eosinophils # 0.1 10^3/uL (0.0-0.8); Eosinophils % 1.7 %; Hematocrit 43.3 % (42.0-52.0); Hemoglobin 14.3 g/dL (11.7-16.6); Lymphocytes # 1.5 10^3/uL (0.8-4.8); Lymphocytes % 36.5 %; Mean Corpuscular Hemoglobin 28.6 pg (28.0-34.0); Mean Corpuscular Volume 86.6 fl (80-94); Mean Platelet Volume 12.5 fL (7.4-10.4); Monocytes # 0.4 10^3/uL (0.2-0.9); Monocytes % 10.2 %; Neutrophils # 2.12 10^3/uL (1.8-7.7); Neutrophils % 50.2 %; Nucleated Red Blood Cells % 0 %; Platelet Count 132 10^3/cmm (130-400); Red Cell Distribution Width 13.7 % (12.1-15.1); White Blood Count 4.2 10^3/uL (4.0-10.0)
== END 2022-09-15 07:13 | disposition home or self-care (01) ==
PROVIDERS: PCP Electrodiagnostic Medicine; Visit Provider Internal Medicine Rheumatology
DX: M05.9 Rheumatoid arthritis with rheumatoid factor, unspecified (principal); Z79.899 Other long term (current) drug therapy
CPT/HCPCS: 36415; 85025

== ENCOUNTER → 2022-10-27 10:16 | Outpatient (BNVA) | payer MEDICARE, SELFPAY | PROVIDERS: PCP Electrodiagnostic Medicine; Visit Provider Internal Medicine Rheumatology | DX: Z79.899 Other long term (current) drug therapy (principal); M05.79 Rheumatoid arthritis with rheumatoid factor of multiple sites without organ or systems involvement; Z71.89 Other specified counseling; M47.816 Spondylosis without myelopathy or radiculopathy, lumbar region | CPT/HCPCS: 36415; 80076; 82565; 85025; 86140; 99214 ==

== ENCOUNTER 2022-11-10 09:08 | Outpatient (CLI) | payer MEDICARE, SELFPAY ==
[2022-11-10 10:05] LABS: Blood Urea Nitrogen 18 mg/dL (8-23)
== END 2022-11-10 09:09 | disposition home or self-care (01) ==
PROVIDERS: PCP Electrodiagnostic Medicine; Visit Provider Internal Medicine Rheumatology
DX: M05.79 Rheumatoid arthritis with rheumatoid factor of multiple sites without organ or systems involvement (principal); Z79.899 Other long term (current) drug therapy
CPT/HCPCS: 82565; 84520

== ENCOUNTER → 2023-02-02 10:53 | Outpatient (BNVA) | payer MEDICARE, SELFPAY | PROVIDERS: PCP Electrodiagnostic Medicine; Visit Provider Internal Medicine Rheumatology | DX: Z79.899 Other long term (current) drug therapy (principal); M05.79 Rheumatoid arthritis with rheumatoid factor of multiple sites without organ or systems involvement; Z71.89 Other specified counseling; M47.816 Spondylosis without myelopathy or radiculopathy, lumbar region | CPT/HCPCS: 36415; 80076; 82565; 85025; 86140; 99214 ==

== ENCOUNTER → 2023-05-25 10:21 | Outpatient (BNVA) | payer MEDICARE, SELFPAY | PROVIDERS: PCP Electrodiagnostic Medicine; Visit Provider Internal Medicine Rheumatology | DX: Z79.899 Other long term (current) drug therapy (principal); M05.79 Rheumatoid arthritis with rheumatoid factor of multiple sites without organ or systems involvement; Z71.89 Other specified counseling; M47.816 Spondylosis without myelopathy or radiculopathy, lumbar region | CPT/HCPCS: 80076; 82565; 85025; 86140; 99214 ==

== ENCOUNTER → 2023-06-24 08:05 | Outpatient (BNVA) | payer MEDICARE, SELFPAY | PROVIDERS: PCP Electrodiagnostic Medicine; Visit Provider Nurse Practitioner Family | DX: L82.1 Other seborrheic keratosis (principal); L57.8 Other skin changes due to chronic exposure to nonionizing radiation; D22.5 Melanocytic nevi of trunk; D22.62 Melanocytic nevi of left upper limb, including shoulder; L81.4 Other melanin hyperpigmentation | CPT/HCPCS: 99213 ==

== ENCOUNTER → 2023-11-23 10:10 | Outpatient (BNVA) | payer MEDICARE, SELFPAY | PROVIDERS: PCP Electrodiagnostic Medicine; Visit Provider Internal Medicine Rheumatology | DX: M05.79 Rheumatoid arthritis with rheumatoid factor of multiple sites without organ or systems involvement (principal); Z79.899 Other long term (current) drug therapy; Z71.85 Encounter for immunization safety counseling; M47.816 Spondylosis without myelopathy or radiculopathy, lumbar region | CPT/HCPCS: 36415; 80076; 82565; 85025; 85651; 86140; 99214 ==

== ENCOUNTER → 2024-05-23 09:40 | Outpatient (BNVA) | payer MEDICARE, SELFPAY | PROVIDERS: PCP Electrodiagnostic Medicine; Visit Provider Internal Medicine Rheumatology | DX: M05.79 Rheumatoid arthritis with rheumatoid factor of multiple sites without organ or systems involvement (principal); Z79.899 Other long term (current) drug therapy; Z71.89 Other specified counseling; M47.816 Spondylosis without myelopathy or radiculopathy, lumbar region | CPT/HCPCS: 36415; 80076; 82306; 82565; 85025; 85651; 86140; 99214 ==

== ENCOUNTER → 2024-06-01 13:14 | Outpatient (BNVA) | payer MEDICARE, SELFPAY | PROVIDERS: PCP Electrodiagnostic Medicine; Visit Provider Nurse Practitioner Family | DX: L82.1 Other seborrheic keratosis (principal); L57.8 Other skin changes due to chronic exposure to nonionizing radiation; D22.5 Melanocytic nevi of trunk; L81.4 Other melanin hyperpigmentation; L73.8 Other specified follicular disorders; S60.032A Contusion of left middle finger without damage to nail, initial encounter; L57.0 Actinic keratosis; X58.XXXA Exposure to other specified factors, initial encounter | CPT/HCPCS: 17000; 99213 ==

== ENCOUNTER 2024-07-07 07:45 | Emergency (ER) | payer MEDICARE, SELFPAY ==
[2024-07-07 07:50] VITALS: BP 148/82; PULSE 84; RESP 17; TEMP 36.5; O2SAT 94; BMI 28.8
[2024-07-07 07:59] LABS: Glucose Point of Care 263 mg/dL (70-110)
--- NOTE | 2024-07-07 08:08 | XR_ITS ---
WS: [id number] Portable AP upright chest, 07/07/2024 Clinical Data: dyspnea/cough Comparison: 2 view chest, 04/06/2022 Findings: No nodules, masses or effusions are seen. The heart is normal. The pulmonary vascularity is not increased. No pneumonia or pneumothorax is seen. The aortic arch and descending thoracic aorta show tortuosity. XR/XR chest 1V portable [id number] Impression: Atherosclerosis.
--- NOTE | 2024-07-07 08:17 | CT_ITS ---
WS: [id number] CT HEAD NONCONTRAST HISTORY: trauma TECHNIQUE: Contiguous axial imaging performed through the brain. Bone and soft tissue windows. Sagittal and coronal reformats reviewed. All CT scans at [facility] use at least one of these dose optimization techniques: automated exposure control; mA and/or kV adjustment per patient size (includes targeted exams where dose is matched to clinical indication); or iterative reconstruction. DLP: 1069.98 mGy.cm COMPARISON: None available. No acute intracranial hemorrhage, midline shift or mass effect. Mild symmetric atrophy and small vessel disease. Ventricles: Normal size with no hydrocephalus. Paranasal sinuses: As visualized are clear. Mastoid air cells: Well pneumatized. Calvarium and scalp: Minimal soft tissue thickening may be contusion centered over the RIGHT frontal bone. Moderate calcification of the intracranial carotid arteries. CT/CT head wo con* [id number] IMPRESSION: 1. No acute intracranial hemorrhage or edema. 2. Mild cerebral atrophy and small vessel disease. 3. No skull fracture.
--- NOTE | 2024-07-07 08:18 | W.ED.DIZZY ---
HPI - Dizziness General: Chief Complaint: Dizziness Stated Complaint: high BS/dizzy/fall Time Seen by Provider: 07/07/24 08:01 History of Present Illness: HPI Narrative: 73-year-old male presents to the emergency room with dizziness and a fall. Patient has diabetes was recently placed on oral steroids for a rash there are elevated blood sugars since this. Overnight he got up felt very dizzy he actually fell he is unsure if he hit his head he denies any loss of consciousness. He still is somewhat dizzy denies chest pain or abdominal pain. Patient is not on any anticoagulants. Associated symptoms: Denies chest pain or chills Related Data Home Medications ?Medication ?Instructions ?Recorded ?Confirmed aspirin 81 mg tablet,delayed 81 mg PO DAILY 05/16/19 07/07/24 release coenzyme Q10 100 mg capsule (Co 100 mg PO DAILY 01/09/22 07/07/24 Q-10) metformin 1,000 mg tablet 1,000 mg PO BID 01/09/22 07/07/24 turmeric 400 mg capsule 400 mg PO DAILY 01/09/22 07/07/24 cholecalciferol (vitamin D3) 50 50 mcg PO DAILY 05/24/24 07/07/24 mcg (2,000 unit) capsule empagliflozin 25 mg tablet 25 mg PO DAILY 07/07/24 07/07/24 (Jardiance) lisinopril 10 mg tablet 10 mg PO DAILY 07/07/24 07/07/24 prednisone 20 mg tablet See Rx Instructions .Route .COMPLEX 07/07/24 07/07/24 Previous Rx's ?Medication ?Instructions ?Recorded diclofenac sodium 1 % topical gel 4 g topical QID #100 grams 01/09/22 pantoprazole 40 mg tablet,delayed 40 mg PO DAILY #90 tabs 01/09/22 release atorvastatin 10 mg tablet See Rx Instructions .Route 02/04/22 .COMPLEX #90 tabs glimepiride 2 mg tablet See Rx Instructions .Route 03/26/22 .COMPLEX #90 tabs hydroxychloroquine 200 mg tablet 200 mg PO DAILY #90 tabs 05/23/24 (Plaquenil) triamcinolone acetonide 0.1 % 1 applic topical BID #80 grams 07/07/24 topical ointment Allergies Allergy/AdvReac Type Severity Reaction Status Date / Time leflunomide Allergy Unknown leukopenia Verified 05/23/24 10:05 Review of Systems Const: Denies: fever(s) or chills Card: Denies: chest pain Resp: Denies: dyspnea GI: Denies: abdominal pain : Denies: dysuria, urinary frequency or urinary urgency Musc: Denies: neck pain or back pain Skin/Breast: Denies: rash PFSH ED PFSH: Medical History COVID-08 December 2021-took Paxlovid Hyperlipidemia Food impaction of esophagus Diverticular disease 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 Type 2 diabetes mellitus Surgical History Status post colonoscopy H/O esophagogastroduodenoscopy History of shoulder surgery Fell and busted right shoulder then surgery 12/2019 History of appendectomy History of hernia surgery Family History Other Arthritis Diabetes Hyperlipidemia Hypertension Social History Smoking and tobacco/nicotine status: former use of tobacco/nicotine Alcohol intake: never Physical Exam Const: COMMON NORMALS: no acute distress GENERAL APPEARANCE: cooperative and comfortable ORIENTATION/CONSCIOUSNESS: Yes awake, Yes oriented to person, Yes oriented to place and Yes oriented to time HENMT: COMMON NORMALS: normocephalic, atraumatic and hearing grossly normal bilaterally HEAD & SCALP: normocephalic and atraumatic Resp: COMMON NORMALS: normal respiratory effort, No retractions, No use of accessory muscles and clear to auscultation bilaterally AUSCULTATION: clear to auscultation bilaterally Cardio: COMMON NORMALS: regular rate, regular rhythm and No murmurs present (Cardio) RATE: regular rate RHYTHM: regular rhythm GI: COMMON NORMALS: Soft to palpation and No hepatosplenomegaly present AUSCULTATION: Yes normoactive bowel sounds PALPATION: Yes Soft to palpation, No Tenderness to palpation present (GI), No Guarding due to palpation present (GI) and Yes No hepatosplenomegaly present Extremity: COMMON NORMALS: normal to inspection, capillary refill normal, no clubbing, cyanosis or edema, no calf tenderness and no pedal edema Neuro: SENSORIUM/ORIENTATION: Yes oriented to person, Yes oriented to place and Yes oriented to time Skin: COMMON NORMALS: no rashes or lesions noted GENERAL SKIN EXAM: no rashes or lesions noted Course Vital Signs: Vital signs: Vital Signs Temperature 97.7 F 07/07/24 07:50 Pulse Rate 78 07/07/24 11:30 Respiratory Rate 17 07/07/24 07:50 Blood Pressure 141/71 07/07/24 11:30 Pulse Oximetry 95 07/07/24 11:30 Oxygen Delivery Me thod Room Air 07/07/24 09:14 MDM - Dizziness Medical Decision Making Blood sugar was elevated when he arrived. He is feeling much better after his blood sugars improved. Will have him stop the higher dose prednisone he was started on recently continue the 2.[address] Soler had prescribed. CT head was negative for any acute findings. Apply topical steroids given triamcinolone to use twice daily until rash is resolved. Return if has further symptoms. Medical Records I reviewed the patient's medical records. Lab Data I reviewed the patient's lab results. 07/07/24 08:27 07/07/24 08:27 Radiology Impressions Chest X-Ray 07/07/24 08:08 Impression: Atherosclerosis. Head CT 07/07/24 08:17 IMPRESSION: 1. No acute intracranial hemorrhage or edema. 2. Mild cerebral atrophy and small vessel disease. 3. No skull fracture. Laboratory Results WBC 5.88 10^3/uL (3.29-11.43) 07/07/24 08:27 RBC 5.02 10^6/uL (3.85-5.65) 07/07/24 08:27 Hgb 14.30 g/dL (11.27-16.99) 07/07/24 08:27 Hct 42.5 % (37-53) 07/07/24 08:27 MCV 84.7 fl (82-101) 07/07/24 08:27 MCH 28.5 pg (27-33) 07/07/24 08:27 MCHC 33.6 g/dL (30-55) 07/07/24 08:27 RDW 14.4 % (12.1-15.1) 07/07/24 08:27 Plt Count 143 10^3/cmm (157-399) L 07/07/24 08:27 MPV 11.6 fL (7.4-10.4) H 07/07/24 08:27 Neut % (Auto) 86.0 % 07/07/24 08:27 Lymph % (Auto) 11.6 % 07/07/24 08:27 Kings % (Auto) 1.9 % 07/07/24 08: Eos % (Auto) 0.0 % 07/07/24 08: Baso % (Auto) 0.2 % 07/07/24 08:27 Neut # (Auto) 5.06 10^3/uL (1.8-7.7) 07/07/24 08: Lymph # (Auto) 0.7 10^3/uL (0.8-4.8) L 07/07/24 08:27 Kings # (Auto) 0.1 10^3/uL (0.2-0.9) L 07/07/24 08:27 Eos # (Auto) 0.0 10^3/uL (0.0-0.8) 07/07/24 08: Baso # (Auto) 0.0 10^3/uL (0.0-0.1) 07/07/24 08: Nucleated RBC % (auto) 0 % 07/07/24 08: Nucleated RBCs # 0.0 /100WBC 07/07/24 08:27 Sodium 140 mmol/L (136-145) 07/07/24 08:27 Potassium 4.8 mmol/L (3.5-5.1) 07/07/24 08: Chloride 107 mmol/L (98-107) 07/07/24 08:27 Carbon Dioxide 22 mmol/L (22-29) 07/07/24 08:27 Anion Gap 15.8 (5-19) 07/07/24 08: BUN 19 mg/dL (8-23) 07/07/24 08: Creatinine 0.9 mg/dL (0.7-1.2) 07/07/24 08:27 GFR Calculation Not Reportable 07/07/24 08:27 Glucose 249 mg/dL (65-115) H 07/07/24 08:27 POC Glucose 185 mg/dL (70-110) H 07/07/24 10:56 Calculated Osmolality 301 mOsm/kg (285-295) H 07/07/24 08:27 Calcium 9.6 mg/dL (8.5-10.5) 07/07/24 08: Total Bilirubin 0.4 mg/dL (0.15-1.2) 07/07/24 08:27 AST 21 U/L (0-40) 07/07/24 08: ALT 25 U/L (0-41) 07/07/24 08: Alkaline Phosphatase 54 U/L (40-130) 07/07/24 08:27 Troponin T Baseline 8 ng/L (0-15) 07/07/24 08: Troponin T 120 Minute 8.17 ng/L (0-15) 07/07/24 10:16 Delta Troponin T 0.17 ABS# (0-10) 07/07/24 10:16 Total Protein 7.0 g/dL (6.6-8.7) 07/07/24 08: Albumin 4.4 g/dL (3.5-5.2) 07/07/24 08: Globulin 2.6 g/dL (1.3-4.6) 07/07/24 08:27 Urine Color Yellow (Yellow) 07/07/24 09:05 Urine Appearance Clear (CLEAR) 07/07/24 09:05 Urine pH 6.0 (5-7) 07/07/24 09:05 Ur Specific [place] 1.038 (1.005-1.030) H 07/07/24 09:05 Urine Protein Negative (Negative) 07/07/24 09:05 Urine Glucose (UA) 3+ (Normal) H 07/07/24 09:05 Urine Ketones Trace (Negative) 07/07/24 09:05 Urine Blood Negative (Negative) 07/07/24 09:05 Urine Nitrate Negative (Negative) 07/07/24 09:05 Urine Bilirubin Negative (Negative) 07/07/24 09:05 Urine Urobilinogen 1.0 mg/dL (Negative) 07/07/24 09:05 Ur Leukocyte Esterase Negative (Negative) 07/07/24 09:05 Urine RBC 3-5 /hpf (0-2) 07/07/24 09:05 Urine WBC 0-5 /hpf (0-5) 07/07/24 09:05 Ur Squamous Epith Cells 0-5 /hpf (0-5) 07/07/24 09:05 Amorphous Sediment Not Reportable 07/07/24 09:05 Urine Bacteria None seen /hpf (NONE) 07/07/24 09:05 Hyaline Casts 0-4 /lpf H 07/07/24 09:05 Serum Ketones Negative (Negative) 07/07/24 08:27 All radiology interpretation(s) finalized by discharge EKG Data EKG 1: Interpretation: Normal sinus rhythm with PVC. No acute ST changes noted. Rate of 88 NM interval of 153 QT 372. Discharge Plan Discharge Patient Disposition: Home Clinical Impression: Medication side effect, Hyperglycemia, Contact dermatitis Condition: Stable Prescriptions: New triamcinolone acetonide 0.1 % ointment 1 applic topical BID Qty: 80 0RF Rx Instructions: Apply twice daily til rash resolves No Action aspirin 81 mg tablet,delayed release (DR/EC) 81 mg PO DAILY hydroxychloroquine [Plaquenil] 200 mg tablet 200 mg PO DAILY Qty: 90 1RF metformin 1,000 mg tablet 1,000 mg PO BID coenzyme Q10 [Co Q-10] 100 mg capsule 100 mg PO DAILY turmeric 400 mg capsule 400 mg PO DAILY diclofenac sodium 1 % gel 4 g topical QID Qty: 100 1RF Rx Instructions: apply to affected area as needed pantoprazole 40 mg tablet,delayed release (DR/EC) 40 mg PO DAILY Qty: 90 1RF atorvastatin 10 mg tablet See Rx Instructions .ROUTE .COMPLEX Qty: 90 3RF Dose Instruction: TAKE 1 TABLET ONE TIME DAILY FOR HYPERLIPIDEMIA Rx Instructions: TAKE 1 TABLET ONE TIME DAILY FOR HYPERLIPIDEMIA glimepiride 2 mg tablet See Rx Instructions .ROUTE .COMPLEX Qty: 90 3RF Dose Instruction: TAKE 1 TABLET EVERY DAY Rx Instructions: TAKE 1 TABLET EVERY DAY cholecalciferol (vitamin D3) 50 mcg (2,000 unit) capsule 50 mcg PO DAILY prednisone 20 mg tablet See Rx Instructions .ROUTE .COMPLEX Rx Instructions: take 3 tabs BY MOUTH DAILY FOR 3 DAYS, THEN 2 tabs daily FOR THREE DAYS, THEN ONE tab daily FOR THREE DAYS lisinopril 10 mg tablet 10 mg PO DAILY Jardiance 25 mg tablet 25 mg PO DAILY Discharge Orders: Discharge ED (Routine); Ordered 07/07/24 Ordered By: London Lopez Referrals: Pratik Lang DO [Primary Care Provider] - Discharge Diet: Diabetic Discharge Activity: Resume usual activity Patient Instructions: Opioid Safety, Pain Management Activity Restrictions/Additional Instructions: Thank you for choosing [facility] for your healthcare needs today. It is very important that you follow up as instructed or that you return to the Emergency Department should you have concerns or if your condition changes or worsens in any way. You were seen this morning with complaint of dizziness your blood pressure is elevated. Suspect the dizziness and elevated blood pressure are due to the increased steroid recommend holding the steroid will instead have you use a topical steroid ointment on the area of the rash. Do continue the 2.5 mg daily of prednisone that Dr. Zee bo had prescribed previously. Print Language: Senegalese Coding Level of Care Code ED Division Field Inspector for Jaycob Santos NIH stroke score NIHSS Level Of Consciousness - 1a: 0 Level Of Consciousness Questions - 1b: Both Correct Level Of Consciousness Commands - 1c: Both Correct Best Gaze - 2: Normal Visual [place] - 3: No Visual Loss Facial Palsy - 4: Normal Motor Arm Right - 5: No Drift Motor Arm Left - 5: No Drift Motor Leg Right - 6: No Drift Motor Leg Left - 6: No Drift Limb Ataxia - 7: Absent Sensory - 8: Normal Best Language - 9: No Aphasia Dysarthia - 10: Normal Extinction And Inattention - 11: 0 Score Total Score: 0
--- NOTE | 2024-07-07 08:25 | ECG_ITS ---
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 Measurements Intervals [place] Rate: 88 P: 53 [place]: 153 QRS: -12 QRSD: 95 T: -10 QT: 372 QTc: 451 Interpretive Statements SINUS RHYTHM WITH OCCASIONAL VENTRICULAR PREMATURE COMPLEXES Compared to ECG 07/31/2018 22:12:48 Ventricular premature complex(es) now present T-wave abnormality no longer present Electronically Signed On 07-07-2024 08:35:30 CDT by Melonie Larson M.D. [email or web address]
[2024-07-07] MEDS: sodium chloride 0.9% 1,000 ML 999 ML IV (08:29)
[2024-07-07 08:32] LABS: Basophils % 0.2 %; Hematocrit 42.5 % (37-53); Lymphocytes # 0.7 10^3/uL (0.8-4.8); Lymphocytes % 11.6 %; Mean Corpuscular HGB Conc 33.6 g/dL (30-55); Mean Corpuscular Hemoglobin 28.5 pg (27-33); Mean Corpuscular Volume 84.7 fl (82-101); Mean Platelet Volume 11.6 fL (7.4-10.4); Monocytes # 0.1 10^3/uL (0.2-0.9); Monocytes % 1.9 %; Neutrophils # 5.06 10^3/uL (1.8-7.7); Nucleated Red Blood Cells % 0 %; Platelet Count 143 10^3/cmm (157-399); Red Blood Count 5.02 10^6/uL (3.85-5.65); Red Cell Distribution Width 14.4 % (12.1-15.1); White Blood Count 5.88 10^3/uL (3.29-11.43)
[2024-07-07 08:45] VITALS: BP 145/80; BP 147/82; BP 156/92
[2024-07-07 08:46] LABS: Ketone (Acetest) Serum Negative (Negative)
[2024-07-07 08:49] VITALS: BP 156/92; O2SAT 95
[2024-07-07 08:50] LABS: Alanine Aminotransferase 25 U/L (0-41); Albumin Level 4.4 g/dL (3.5-5.2); Alkaline Phosphatase 54 U/L (40-130); Anion Gap 15.8 (5-19); Aspartate Amino Transferase 21 U/L (0-40); Blood Urea Nitrogen 19 mg/dL (8-23); Calcium 9.6 mg/dL (8.5-10.5); Carbon Dioxide 22 mmol/L (22-29); Chloride 107 mmol/L (98-107); Creatinine Clr Calc Pharmacy 78.0405; Globulin 2.6 g/dL (1.3-4.6); Glucose 249 mg/dL (65-115); Osmolality Calculated 301 mOsm/kg (285-295); Potassium 4.8 mmol/L (3.5-5.1); Sodium 140 mmol/L (136-145); Total Bilirubin 0.4 mg/dL (0.15-1.2)
[2024-07-07 09:14] VITALS: BP 136/78; O2SAT 96
[2024-07-07 09:19] LABS: Bacteria Urine None Seen /hpf; Hyaline Casts Urine 0-4 /lpf; Squamous Epithelial Cell Urine 0-5 /hpf (0-5); WBC Urine 0-5 /hpf (0-5)
[2024-07-07 09:22] LABS: Add Urine Microscopic? YES; Bilirubin Urine Negative (Negative); Blood Urine Negative (Negative); Glucose Urine UA 3+ (Normal); Ketones Urine Trace (Negative); Leukocyte Esterase Urine Negative (Negative); Nitrate Urine Negative (Negative); Protein Urine Negative (Negative); Urine Appearance Clear (CLEAR); Urine Color Yellow (Yellow)
[2024-07-07 09:45] LABS: Specific Gravity, Urine 1.038 (1.005-1.030)
[2024-07-07 09:47] VITALS: BP 144/86
[2024-07-07 09:51] LABS: Troponin(5th) Baseline 8 ng/L (0-15)
[2024-07-07 10:45] LABS: Troponin 5 2HR 8.17 ng/L (0-15); Troponin 5 2HR Delta 0.17 ABS# (0-10)
[2024-07-07 10:58] LABS: Glucose Point of Care 185 mg/dL (70-110)
[2024-07-07 11:30] VITALS: BP 141/71; PULSE 78; O2SAT 95
== END 2024-07-07 11:31 | disposition home or self-care (01) ==
PROVIDERS: Emergency Provider Family Medicine; PCP Electrodiagnostic Medicine
DX: T50.905A Adverse effect of unspecified drugs, medicaments and biological substances, initial encounter (principal); L25.9 Unspecified contact dermatitis, unspecified cause; Z79.82 Long term (current) use of aspirin; Z79.84 Long term (current) use of oral hypoglycemic drugs; E11.65 Type 2 diabetes mellitus with hyperglycemia; E78.5 Hyperlipidemia, unspecified; X58.XXXA Exposure to other specified factors, initial encounter
CPT/HCPCS: 36415; 36416; 70450; 71045; 80053; 81001; 82009; 82962; 84484; 85025; 93005; 99285; J7030

== ENCOUNTER → 2024-11-29 10:11 | Outpatient (BNVA) | payer MEDICARE, SELFPAY | PROVIDERS: PCP Electrodiagnostic Medicine; Visit Provider Internal Medicine Rheumatology | DX: M05.79 Rheumatoid arthritis with rheumatoid factor of multiple sites without organ or systems involvement (principal); Z79.899 Other long term (current) drug therapy; Z71.85 Encounter for immunization safety counseling; M47.816 Spondylosis without myelopathy or radiculopathy, lumbar region | CPT/HCPCS: 36415; 80076; 82306; 82565; 85025; 85651; 86140; 99214 ==